=== PATIENT | female | born 1980 | race Caucasian/White ===

== ENCOUNTER 2021-10-19 10:20 | Emergency (ER) | payer MEDICARE, MEDICAID, SELFPAY ==
[2021-10-19 11:56] VITALS: BP 101/57; PULSE 67; RESP 16; O2SAT 100; BMI 26.6
[2021-10-19 14:08] LABS: Basophils % 0.5 %; Eosinophils # 0.1 10^3/uL (0.0-0.8); Eosinophils % 0.7 %; Hematocrit 28.5 % (37.0-47.0); Hemoglobin 8.7 g/dL (11.5-15.3); Lymphocytes # 1.5 10^3/uL (0.8-4.8); Lymphocytes % 17.6 %; Mean Corpuscular HGB Conc 30.5 g/dL (30.0-36.0); Mean Corpuscular Hemoglobin 24.2 pg (28.0-34.0); Mean Corpuscular Volume 79.2 fl (81-99); Mean Platelet Volume 10.3 fL (7.4-10.4); Monocytes # 0.4 10^3/uL (0.2-0.9); Monocytes % 4.9 %; Neutrophils # 6.67 10^3/uL (1.8-7.7); Nucleated Red Blood Cells % 0 %; Platelet Count 257 10^3/cmm (130-400); White Blood Count 8.8 10^3/uL (4.0-10.0)
[2021-10-19 14:52] LABS: Alanine Aminotransferase 9 U/L (0-33); Alkaline Phosphatase 77 IU/L (35-105); Aspartate Amino Transferase 12 U/L (0-32); Blood Urea Nitrogen 3 mg/dL (6-20); Calcium 8.5 mg/dL (8.5-10.5); Carbon Dioxide 21 mmol/L (22-29); Chloride 105 mmol/L (98-107); Globulin 2.8 g/dL (1.3-4.6); Glomerular Filtration Rate 134.7 mL/min (90-130); Glucose 140 mg/dL (65-115); Osmolality Calculated 287 mOsm/kg (285-295); Sodium 139 mmol/L (136-145); Total Bilirubin 0.2 mg/dL (0.15-1.2); Total Protein 6.8 g/dL (6.6-8.7)
--- NOTE | 2021-10-19 14:54 | US_ITS ---
WS: [id number] ULTRASOUND PELVIS TECHNIQUE: Transabdominal. Patient refused transvaginal. CLINICAL INFORMATION: bleeding/spotting/cramping; LMP: 08/21/2021 : No. COMPARISON: None. FINDINGS: Uterus Orientation: Anteverted. Size: 6.2 cm x 12.2 cm x 6.8 cm Masses: None. Cervix: Fluid in the cervix. Submucosal polypoid lesion measuring approximately 1.9 x 1.4 CM in the c ervical canal. This may represent cervical polyp versus less likely hematoma. Recommend direct visua lization. Endometrium: Normal. Endometrium thickness: 11 mm. Adnexa: Normal. Right ovary size: 1.6 cm x 3.8 cm x 2.0 cm. Right ovary volume: 6.0 ccm3 Left ovary size: 1.5 cm x 3.1 cm x 2.2 cm. Left ovary volume: 5.2 ccm3 Free fluid: None. Other findings: None. US/US pelvic complete* [id number] IMPRESSION: 1. Submucosal polypoid lesion measuring approximately 1.9 x 1.4 CM in the cerv ical canal. Findings suspicious for cervical polyp versus less likely hematoma. Neoplasm is not excluded. Recommend direct visualization/biopsy for further ev aluation.. 2. Normal adnexa with normal ovarian vascularity. 3. No free fluid in the cul-de-sac. 4. Small amount of fluid in the cervix.
--- NOTE | 2021-10-20 12:37 | DCPLANNER ---
food production manager had message to schedule a follow up appointment for patient with [facility]. food production manager called [facility] spoke with [facility], gave clinic patients information. food production manager was told that patients information would be printed and reviewed. Clinic will call patient with appointment information.
--- NOTE | 2021-10-22 06:51 | DCPLANNER ---
Patient has a follow up appointment scheduled for Saturday, November 06, 2021 at 2:00 with Noelle Ortiz at [facility]. Clinic will call patient with appointment information.
--- NOTE | 2021-11-10 08:07 | DCPLANNER ---
Patient had a follow up appointment scheduled for 11.06.21 with Noelle Ortiz at [facility] - patient did attend appointment.
== END 2021-10-19 18:30 | disposition left against medical advice (07) ==
LOC: ER 10:26
PROVIDERS: Physician Assistant; Emergency Provider Family Medicine
DX: Z53.21 Procedure and treatment not carried out due to patient leaving prior to being seen by health care provider (principal)
CPT/HCPCS: 76856; 80053; 84702; 85025; 86900

== ENCOUNTER → 2021-10-21 10:06 | Outpatient (BNVA) | payer MEDICARE, MEDICAID, SELFPAY | PROVIDERS: Visit Provider Obstetrics & Gynecology | DX: O02.1 Missed abortion (principal); O03.9 Complete or unspecified spontaneous abortion without complication; Z3A.00 Weeks of gestation of pregnancy not specified | CPT/HCPCS: 84702 ==

== ENCOUNTER → 2021-11-06 14:52 | Outpatient (BNVA) | payer MEDICARE, MEDICAID, SELFPAY | PROVIDERS: Visit Provider Nurse Practitioner Women's Health | DX: D64.9 Anemia, unspecified (principal); O03.4 Incomplete spontaneous abortion without complication | CPT/HCPCS: 82607; 82728; 82746; 83550; 84702; 85007; 85027 ==

== ENCOUNTER → 2021-11-18 10:11 | Day surgery (SDC) | payer MEDICARE, MEDICAID, SELFPAY ==
[2021-11-18 10:30] VITALS: BP 108/56; PULSE 51; RESP 18; TEMP 36.3; O2SAT 99
[2021-11-18] MEDS: iron sucrose 200 MG in sodium chloride 0.9% (100 ml) 100 ML 220 MG IV (10:52)
== END ==
PROVIDERS: PCP Nurse Practitioner Family; Visit Provider Nurse Practitioner Women's Health
DX: D50.9 Iron deficiency anemia, unspecified (principal)
CPT/HCPCS: 96365; J1756

== ENCOUNTER → 2022-09-21 12:04 | Outpatient (BNVA) | payer MEDICARE, MEDICAID, SELFPAY | PROVIDERS: PCP Nurse Practitioner Family; Visit Provider Nurse Practitioner Family | DX: D64.9 Anemia, unspecified (principal); D50.9 Iron deficiency anemia, unspecified; E55.9 Vitamin D deficiency, unspecified | CPT/HCPCS: 80053; 82306; 82607; 82728; 82746; 83550; 84443; 85025 ==

== ENCOUNTER → 2022-11-30 10:28 | Outpatient (BNVA) | payer MEDICARE, MEDICAID, SELFPAY | PROVIDERS: PCP Nurse Practitioner Family; Visit Provider Nurse Practitioner Women's Health | DX: Z32.00 Encounter for pregnancy test, result unknown (principal); N92.6 Irregular menstruation, unspecified | CPT/HCPCS: 81025; 84315; 84702 ==

== ENCOUNTER → 2022-12-09 10:55 | Outpatient (BNVA) | payer MEDICARE, MEDICAID, SELFPAY | PROVIDERS: PCP Nurse Practitioner Family; Visit Provider Nurse Practitioner Women's Health | DX: D64.9 Anemia, unspecified (principal); E55.9 Vitamin D deficiency, unspecified; O09.90 Supervision of high risk pregnancy, unspecified, unspecified trimester | CPT/HCPCS: 81025; 82607; 82728; 82746; 83550; 85025 ==

== ENCOUNTER → 2023-03-17 16:38 | Outpatient (BNVA) | payer MEDICARE, MEDICAID, SELFPAY | PROVIDERS: PCP Nurse Practitioner Family; Visit Provider Family Medicine | DX: O09.899 Supervision of other high risk pregnancies, unspecified trimester (principal); O99.019 Anemia complicating pregnancy, unspecified trimester; O34.219 Maternal care for unspecified type scar from previous cesarean delivery; N85.8 Other specified noninflammatory disorders of uterus; O99.840 Bariatric surgery status complicating pregnancy, unspecified trimester | CPT/HCPCS: 80053; 82306; 82607; 82728; 82746; 85025 ==

== ENCOUNTER 2024-03-05 06:00 | Outpatient (RCR) | payer MEDICARE, SELFPAY | END 2024-03-23 23:59 | disposition home or self-care (01) | LOC: TPT 06:00 | PROVIDERS: Visit Provider Surgery | DX: M54.30 Sciatica, unspecified side (principal); M54.16 Radiculopathy, lumbar region; M99.83 Other biomechanical lesions of lumbar region | CPT/HCPCS: 97110; 97162 ==